=== PATIENT | male | born 1960 | race Caucasian/White ===

== ENCOUNTER 2020-05-10 12:25 | Emergency (ER) | payer OTHER, SELFPAY ==
[2020-05-10 12:27] VITALS: BP 161/99; PULSE 92; RESP 14; TEMP 36.6; O2SAT 99; BMI 22.7
--- NOTE | 2020-05-10 12:59 | EKG12_ITS ---
Test Reason : ARM PAIN Blood Pressure : / mmHG Vent. Rate : 076 BPM Atrial Rate : 076 BPM P-R Int : 140 ms QRS Dur : 092 ms QT Int : 382 ms P-R-T Axes : 008 019 035 degrees QTc Int : 429 ms Normal sinus rhythm Normal ECG Confirmed by PETER SHEIKH, BOLA ([id number]), editor producer DORY HASKINS ([id number]) on 05/15/2020 11:01:21 AM Referred By: JENNA Confirmed By:GLADIS GREEN MD
--- NOTE | 2020-05-10 13:01 | ED.DCSUM_ITS ---
- ER Visit Summary Date of Service: 05/10/20 Chief Complaint: Left shoulder discomfort History of Present Illness: The patient is a 59 M history of hypertension high cholesterol. Patient states today he has some left shoulder discomfort radiating down to the ulnar side of his left small and ring finger. He denies any chest pain. No shortness of breath. No nausea. No diaphoresis. Not associated with exertion. He is never had any cardiac history. There is no family history of cardiac disease. He is a non-smoker. States is a very specific point on top of his left shoulder is having discomfort. He denies any recent fall injury or trauma. No heavy exercise. He has no redness or swelling of the shoulder. No fever. He is right-hand dominant. He has never had shoulder surgery. Denies any neck pain. Physical Examination: Well-appearing 59-year-old male. Vital signs stable afebrile. Initial blood pressure 161/99. Pulse ox 9 9% room air no signs hypoxia. HEENT exam unremarkable. Neck nontender no lymphadenopathy. Lungs clear to auscultation bilaterally. Heart regular rhythm no murmur. Abdomen soft nontender. Extremities moves all 4. Neurovascular intact. There is no swelling. Specifically left shoulder is very specific minor point tenderness to the top of his left shoulder. He has full flexion-extension internal and external rotation. There is no redness or swelling. He has full flexion- extension of the left elbow. Also full flexion-extension of the left wrist. He has strong radial and ulnar pulses. 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 He can open close his left hand without any difficulty. There is no swelling or abnormality of the left upper extremity otherwise. Neurologically is awake and alert with no focal motor deficits. No loss of sensation. Test Results: EKG shows normal sinus rhythm rate of 76 with no acute abnormality. No signs of [place] or ischemia. CBC normal white count 8 hemoglobin 16. Chemistries normal. Troponin normal. Chest x-ray portable 1 view shows no acute abnormality. Interpreted by me. Normal cardiac silhouette mediastinum. Left shoulder on the chest x-ray appears normal. Repeat exam patient is doing well at 1:50 PM. Exam unremarkable unchanged. Left hand remains neurovascular intact with strong pulses and normal motor strength. Emergency Department Course and Treatment: Patient has atypical left shoulder pain is probably musculoskeletal. He is somewhat concerned about it will do a cardiac work-up by my clinical suspicion for cardiac etiology is actually very low. This is not exertional. There is no obvious signs of radiculopathy is no neck or back pain. With movement of his shoulder it really does not change his discomfort. Treatment Plan: Follow-up with primary care physician. Return if feeling worse. Disposition: Discharge Impression: Acute left shoulder pain of uncertain etiology This note was generated with [employer] dictation software. It may contain incorrect words, spelling, and punctuation that were not noted in review of the chart prior to signing ED Disposition - Plan for ED Patient: Referrals: Walter Hansen III, MD [Primary Care Provider] -
[2020-05-10 13:16] VITALS: BP 148/85; PULSE 78; RESP 18; O2SAT 98
[2020-05-10 13:19] VITALS: O2SAT 98
--- NOTE | 2020-05-10 13:25 | RAD_ITS ---
STUDY: X-RAY CHEST REASON FOR EXAM: Male, 59 years old. Left shoulder pain starting at 1100 goes down into hand TECHNIQUE: Single AP portable view of the chest. COMPARISON: Comparison is made with prior study dated 07/25/2015. FINDINGS: EKG electrodes are seen. Hyperinflation. The lungs are clear. There is no demonstrated pleural abnormality. Normal size heart. Normal mediastinum and john. There is prominence of the pulmonary hilar arteries without peripheral pulmonary vascular congestion, suggesting pulmonary hypertension. Normal visualized aortic arch and descending thoracic aorta. Normal visualized thoracic spine. Normal visualized ribs, clavicles, and shoulders. There is no demonstrated abnormality of the visualized soft tissue structures of the upper abdomen. RAD/Chest 1 View (Portable) IMPRESSION: Hyperinflation. The lungs are clear. Electronically Signed: Lui Pathak, at 14:14 EST , Service support ,
[2020-05-10 13:34] LABS: Absolute Lymphocyte Count 1.02 X10^3/uL (0.83-4.51); Absolute Neutrophil Count 6.9 X10^3/uL (2.0-7.7); Basophil# 0.04 X10^3/uL; Basophil% 0.5 % (0-1); Eosinophil# 0.06 X10^3/uL; Eosinophils% 0.7 % (0-5); Hematocrit 49.1 % (40-54); Hemoglobin 16.2 g/dL (13.0-16.5); Lymphocyte # 1.02 X10^3/ul (4.0); Lymphocyte % 11.9 % (19-41); Mean Corpuscular Hgb 27.9 pg (27.0-32.0); Mean Corpuscular Volume 84.5 fL (80-94); Monocyte# 0.54 X10^3/uL; Monocyte% 6.3 % (0-10); NRBC Flagged by Analyzer 0 % (0-5); Neutrophil # 6.89 X10^3/uL (2.7-7.7); Neutrophil % 80.4 % (47-70); Platelet Count 215 K/mm3 (150-450); RBC Distribution Width CV 12.1 % (11.6-14.6); RBC Distribution Width SD 36.5 fl (35.1-43.9); Red Blood Count 5.81 M/mm3 (4.6-6.2); White Blood Count 8.6 K/mm3 (4.4-11.0)
[2020-05-10 13:46] LABS: Anion Gap 5 (5-15); BUN 16 mg/dL (7-18); Calcium,Total 9.1 mg/dL (8.5-10.1); Chloride 102 mmol/L (98-107); Creatinine, Serum 1.14 mg/dL (0.70-1.30); EST Glomerular Filtration Rate 69 mL/min (>60); Est Glom Filt Rate - Afr Amer 84 mL/min (>60); Estimated Creatinine Clearance 71.22 ml/min; Glucose 108 mg/dL (74-106); Potassium 4.1 mmol/L (3.5-5.1); Sodium Level 136 mmol/L (136-145)
--- NOTE | 2020-05-10 13:56 | DCINST.ED_ITS ---
ED Disposition - Plan for ED Patient: Disposition: Home or Assisted Living Referrals: Walter Hansen III, MD [Primary Care Provider] - 3-5 Days if not improving Additional Instructions: This appears to be musculoskeletal shoulder pain. The cardiac work-up we did for atypical chest pain evaluation was all normal including your EKG, chest x- ray and lab work. Tylenol and/or Motrin for pain. If not improving follow-up with your doctor. He started having chest pain or exertional symptoms follow-up with the emergency department.
== END 2020-05-10 14:08 | disposition home or self-care (01) ==
PROVIDERS: Emergency Provider Emergency Medicine; PCP Family Medicine
DX: M25.512 Pain in left shoulder (principal); I10 Essential (primary) hypertension
CPT/HCPCS: 71045; 80048; 84484; 85025; 93005; 99285; A4216

== ENCOUNTER 2021-07-26 09:01 | Outpatient (CLI) | payer OTHER, SELFPAY ==
[2021-07-26 10:33] LABS: Vitamin D,25 Hydroxy 55.4 ng/mL
[2021-07-26 10:47] LABS: Anion Gap 4 (5-15); BUN 17 mg/dL (7-18); BUN/Creat Ratio 15.5 RATIO (10-20); Calcium,Total 9.2 mg/dL (8.5-10.1); Chloride 104 mmol/L (98-107); Cholesterol 181 mg/dL (200); EST Glomerular Filtration Rate 72 mL/min (>60); Est Glom Filt Rate - Afr Amer 87 mL/min (>60); Glucose 100 mg/dL (74-106); High Density Lipoprotein 49 mg/dL; PSA,Total - Annual Screen 1.89 ng/mL (0.00-4.00); Potassium 3.7 mmol/L (3.5-5.1); Sodium Level 137 mmol/L (136-145); Triglycerides 65 mg/dL; Very Low Density Lipoprotein 13 mg/dL (5-40)
== END 2021-07-26 23:59 | disposition home or self-care (01) ==
PROVIDERS: PCP Family Medicine; Referring Provider Family Medicine; Visit Provider Family Medicine
DX: Z13.1 Encounter for screening for diabetes mellitus (principal); Z13.21 Encounter for screening for nutritional disorder; Z12.5 Encounter for screening for malignant neoplasm of prostate; Z13.220 Encounter for screening for lipoid disorders
CPT/HCPCS: 36415; 80048; 80061; 82306; 84153; G0103